=== PATIENT | male | born 1970 | race Caucasian/White ===

== ENCOUNTER 2021-02-15 20:06 | Inpatient (IN) | payer MEDICARE, BC ==
[~2021-02-15] VITALS: Ht 182.9 cm; Wt 116.2 kg
[2021-02-15] MEDS ORDERED: DexAMETHasone SOD PHOS 10MG/1ML VIAL INJ IV ONE (22:15)
[2021-02-15 22:35] LABS: Basophils # (auto) 0 10 ^3/uL (0-0.2); Basophils % (auto) 0.2 % (0.0-2.0); Eosinophils # (auto) 0 10 ^3/uL (0-0.8); Hemoglobin 12.7 g/dL (13.5-17.5); Lymphocytes % (auto) 47.3 % (10.0-50.0); Mean Corpuscular Hgb Conc. 34.5 g/dL (32.0-36.0); Monocytes # (auto) 0.2 10 ^3/uL (0-1.3); Monocytes % (auto) 3.6 % (0.0-12.0); Neutrophils # (auto) 2.1 10 ^3/uL (1.6-8.6); Neutrophils % (auto) 48.9 % (37.0-80.0); Nucleated Red Blood Cells % 0.3 %; Red Cell Distribution Width 13.4 % (11.8-14.3); White Blood Cell 4.2 10^3/uL (4.4-10.8)
[2021-02-15 22:49] LABS: Chloride 99 mmol/L (98-107); Potassium 4.5 mmol/L (3.5-5.1); Sodium 132 mmol/L (136-145)
[2021-02-15 22:53] LABS: INR 1.03 (0.9-1.15)
[2021-02-15 22:58] LABS: Alanine Aminotransferase 30 U/L (16-61); Alkaline Phosphatase 54 U/L (45-117); Anion Gap 6 (5-15); Aspartate Aminotransferase 31 U/L (15-37); BUN/Creatinine Ratio 22.9; Bilirubin, Total 0.4 mg/dL (0.2-1.0); Blood Urea Nitrogen 22 mg/dL (7-18); Calcium 7.8 mg/dL (8.5-10.1); Carbon Dioxide 27 mmol/L (21-32); GFR African American 107 mL/min; GFR Non-African American 88 mL/min; Glucose 297 mg/dL (74-106); Magnesium 2.2 mg/dL (1.6-2.6)
[2021-02-15] MEDS ORDERED: NITROGLYCERIN 0.4 MG SL TAB SL PRN (23:00)
[2021-02-15] MEDS ORDERED: AZITHROMYCIN 500MG/ 250ML 250 ML IV ONE (23:00)
[2021-02-15] MEDS ORDERED: REMDESIVIR PER PHARMACY 0 ML IV SCH (23:00)
[2021-02-15] MEDS ORDERED: MORPHINE SULFATE INJECTION 2 MG/ML SYRG IV PRN (23:00)
[2021-02-15] MEDS ORDERED: cefTRIAXone 1GM/50ML D5W 50 ML IV ONE (23:00)
[2021-02-16] VITALS (7 sets, daily range): BP systolic 109–144; BP diastolic 67–77
[2021-02-16] MEDS: ONDANSETRON HCL 4 MG/2 ML VIAL IV PRN ×3 (02:09→21:57)
[2021-02-16] MEDS: TEMAZEPAM 15 MG CAP PO PRN ×2 (02:10→23:15)
[2021-02-16] MEDS ORDERED: DOCU-94 PO (03:15)
[2021-02-16] MEDS ORDERED: SERT50TA19 PO (03:15)
[2021-02-16] MEDS ORDERED: FENO160T8 PO (03:15)
[2021-02-16] MEDS ORDERED: GABA300C10 PO (03:15)
[2021-02-16] MEDS ORDERED: QUET300T24 PO (03:15)
[2021-02-16] MEDS ORDERED: DULO60CA PO (03:15)
[2021-02-16] MEDS ORDERED: ATOR40TA52 PO (03:15)
[2021-02-16] MEDS ORDERED: HYDR-4798 PO (03:15)
[2021-02-16] MEDS ORDERED: SACC1CAP3 PO (03:15)
[2021-02-16] MEDS ORDERED: OMEP20TA PO (03:15)
[2021-02-16] MEDS ORDERED: LISI20TA28 PO (03:15)
[2021-02-16] MEDS ORDERED: ASCO500C49 PO (03:15)
[2021-02-16] MEDS ORDERED: OXCA600T3 PO (03:15)
[2021-02-16] MEDS ORDERED: INSUINJ18 SC (03:15)
[2021-02-16] MEDS: ACETAMINOPHEN 500 MG TAB PO PRN (04:12)
[2021-02-16] MEDS: IPRATROPIUM BROMIDE HFA AER IN SCH ×4 (06:00→22:20)
[2021-02-16] MEDS ORDERED: LEVOTHYROXINE SODIUM 100 MCG TAB PO SCH (07:00)
[2021-02-16 07:41] LABS: Basophils # (auto) 0 10 ^3/uL (0-0.2); Basophils % (auto) 0.2 % (0.0-2.0); Eosinophils # (auto) 0 10 ^3/uL (0-0.8); Hematocrit 38.2 % (41.0-53.0); Hemoglobin 12.9 g/dL (13.5-17.5); Lymphocytes # (auto) 2.1 10 ^3/uL (0.4-5.4); Lymphocytes % (auto) 46.2 % (10.0-50.0); Mean Corpuscular Hemoglobin 28.6 pg (28.0-32.0); Mean Corpuscular Hgb Conc. 33.7 g/dL (32.0-36.0); Mean Corpuscular Volume 84.8 fL (80.0-100.0); Monocytes # (auto) 0.1 10 ^3/uL (0-1.3); Monocytes % (auto) 3.3 % (0.0-12.0); Neutrophils # (auto) 2.3 10 ^3/uL (1.6-8.6); Neutrophils % (auto) 50.3 % (37.0-80.0); Nucleated Red Blood Cells % 0.3 %; Red Cell Distribution Width 13.1 % (11.8-14.3); White Blood Cell 4.5 10^3/uL (4.4-10.8)
[2021-02-16 07:52] LABS: Albumin 2.8 g/dL (3.4-5.0); Calcium 7.9 mg/dL (8.5-10.1); Potassium 4.7 mmol/L (3.5-5.1)
[2021-02-16 07:55] LABS: BUN/Creatinine Ratio 23.8; Bilirubin, Total 0.4 mg/dL (0.2-1.0); Total Protein 7.1 g/dL (6.4-8.2)
[2021-02-16] MEDS ORDERED: REMDESIVIR 200 MG in NS 210ml LOADING DOSE ADULT IV ONE (10:00)
[2021-02-16] MEDS: DexAMETHasone SOD PHOS 10MG/1ML VIAL INJ IV SCH (10:26)
[2021-02-16] MEDS: FAMOTIDINE 20 MG TAB PO SCH ×2 (10:27→21:55)
[2021-02-16] MEDS: ASCORBIC ACID 1,000 MG TAB PO SCH (10:27)
[2021-02-16] MEDS: CHOLECALCIFEROL (VITD3) 2,000 UNIT CAP/TAB PO SCH (10:27)
[2021-02-16] MEDS: LISINOPRIL 20 MG TAB PO SCH (10:27)
[2021-02-16] MEDS: ZINC SULFATE 220mg CAP or TAB PO SCH (10:27)
[2021-02-16] MEDS: ENOXAPARIN SOD 40 MG/0.4 ML SYRINGE SC SCH ×2 (10:28→21:55)
[2021-02-16] MEDS: ALBUTEROL SULF HFA 90MCG INH 200DOSE IN PRN ×2 (12:23→19:03)
[2021-02-16] MEDS ORDERED: FUROSEMIDE 20 MG/2 ML VIAL IV ONE (12:45)
[2021-02-16] MEDS: IVERMECTIN 3 MG TAB PO SCH (13:36)
[2021-02-16] MEDS: MORPHINE SULFATE INJECTION 2 MG/ML SYRG IV PRN ×2 (13:37→21:57)
[2021-02-16] MEDS: BUDESONIDE (INHALATION) 180 MCG IH IN SCH ×2 (15:00→19:03)
[2021-02-16] MEDS: ERGOCALCIFEROL 50,000 UNIT(1.25MG) CAP PO SCH (15:22)
[2021-02-16] MEDS ORDERED: DEXTROSE (50%) 50ML SYRG IV PRN (15:30)
[2021-02-16] MEDS ORDERED: ACETAMINOPHEN 650 mg PER 20.3 mL UD PO ONE (15:30)
[2021-02-16] MEDS ORDERED: diphenhdrAMINE HCL 50 MG/1 ML VL IV ONE (15:30)
[2021-02-16] MEDS ORDERED: methylPREDNISolone SOD SUCC 40 MG/ML VL IV ONE (15:30)
[2021-02-16] MEDS ORDERED: TOCILIZUMAB 400 MG in SODIUM CHL 0.9% 80 ML IV ONE (16:00)
[2021-02-16] MEDS: InsuLIN REG 1unit/0.01ml Soln (100units/ml) SC SCH ×2 (17:48→21:56)
[2021-02-16] MEDS: ACCU-CHEK COMFORT CURVE STRIP VI SCH ×2 (17:48→21:55)
[2021-02-16] MEDS: cefTRIAXone 1GM/50ML D5W 50 ML IV SCH (21:15)
[2021-02-16] MEDS: ATORVASTATIN 20 MG TAB PO SCH (21:54)
[2021-02-16] MEDS: INSULIN LANTUS (GLARGINE) 1 /0.01ml (100units/ml) SC SCH (21:56)
[2021-02-16] MEDS ORDERED: PATIENTS OWN MEDICATION (PULMICORT 360 MCG) IN SCH (22:00)
[2021-02-16] MEDS ORDERED: BUDESONIDE (INHALATION) 0.5 MG/2 ML NEB NEB SCH (22:00)
[2021-02-16] MEDS: AZITHROMYCIN 500MG/ 250ML 250 ML IV SCH (23:14)
[2021-02-17] VITALS (8 sets, daily range): BP systolic 106–136; BP diastolic 43–76
[2021-02-17] MEDS: ACETAMINOPHEN 500 MG TAB PO PRN (04:35)
[2021-02-17] MEDS: LEVOTHYROXINE SODIUM 100 MCG TAB PO SCH (06:19)
[2021-02-17] MEDS: InsuLIN REG 1unit/0.01ml Soln (100units/ml) SC SCH ×4 (06:20→22:25)
[2021-02-17] MEDS: LEVOTHYROXINE SODIUM 25 MCG TAB PO SCH (06:20)
[2021-02-17] MEDS: ACCU-CHEK COMFORT CURVE STRIP VI SCH ×4 (06:20→21:17)
[2021-02-17] MEDS: BUDESONIDE (INHALATION) 180 MCG IH IN SCH ×2 (07:29→18:53)
[2021-02-17] MEDS: IPRATROPIUM BROMIDE HFA AER IN SCH ×4 (07:29→22:27)
[2021-02-17] MEDS ORDERED: diphenhdrAMINE HCL 50 MG/1 ML VL IV ONE (10:00)
[2021-02-17] MEDS ORDERED: ACETAMINOPHEN 650 mg PER 20.3 mL UD PO ONE (10:00)
[2021-02-17] MEDS: DexAMETHasone SOD PHOS 10MG/1ML VIAL INJ IV SCH (10:22)
[2021-02-17] MEDS: FUROSEMIDE 20 MG/2 ML VIAL IV SCH (10:23)
[2021-02-17] MEDS: ZINC SULFATE 220mg CAP or TAB PO SCH (10:23)
[2021-02-17] MEDS: FAMOTIDINE 20 MG TAB PO SCH ×2 (10:23→21:17)
[2021-02-17] MEDS: LISINOPRIL 20 MG TAB PO SCH (10:24)
[2021-02-17] MEDS: ENOXAPARIN SOD 40 MG/0.4 ML SYRINGE SC SCH ×2 (10:24→21:17)
[2021-02-17] MEDS: ASCORBIC ACID 1,000 MG TAB PO SCH (10:24)
[2021-02-17] MEDS: CHOLECALCIFEROL (VITD3) 2,000 UNIT CAP/TAB PO SCH (10:24)
[2021-02-17] MEDS ORDERED: TOCILIZUMAB 400 MG in SODIUM CHL 0.9% 80 ML IV ONE (10:30)
[2021-02-17] MEDS: INSULIN LANTUS (GLARGINE) 1 /0.01ml (100units/ml) SC SCH ×2 (10:48→22:24)
[2021-02-17] MEDS: IVERMECTIN 3 MG TAB PO SCH (10:48)
[2021-02-17] MEDS: ONDANSETRON HCL 4 MG/2 ML VIAL IV PRN ×2 (10:50→20:05)
[2021-02-17] MEDS: MORPHINE SULFATE INJECTION 2 MG/ML SYRG IV PRN ×2 (10:50→20:05)
[2021-02-17] MEDS: REMDESIVIR 100mg 100 MG in SODIUM CHL 0.9% 230 ML IV SCH (15:10)
[2021-02-17] MEDS: cefTRIAXone 1GM/50ML D5W 50 ML IV SCH (21:17)
[2021-02-17] MEDS: ATORVASTATIN 20 MG TAB PO SCH (21:17)
[2021-02-17] MEDS: AZITHROMYCIN 500MG/ 250ML 250 ML IV SCH (22:25)
[2021-02-18] MEDS: TEMAZEPAM 15 MG CAP PO PRN (00:36)
[2021-02-18] MEDS: MORPHINE SULFATE INJECTION 2 MG/ML SYRG IV PRN ×2 (03:56→10:02)
[2021-02-18] MEDS: ONDANSETRON HCL 4 MG/2 ML VIAL IV PRN ×2 (03:56→10:02)
[2021-02-18 05:19] VITALS: BP 105/52
[2021-02-18] MEDS: InsuLIN REG 1unit/0.01ml Soln (100units/ml) SC SCH ×4 (06:19→22:52)
[2021-02-18] MEDS: ACCU-CHEK COMFORT CURVE STRIP VI SCH ×4 (06:20→21:29)
[2021-02-18] MEDS: LEVOTHYROXINE SODIUM 25 MCG TAB PO SCH (06:20)
[2021-02-18] MEDS: LEVOTHYROXINE SODIUM 100 MCG TAB PO SCH (06:20)
[2021-02-18] MEDS: HYDROcodone-ACET 10/325MG TAB PO PRN (06:21)
[2021-02-18 07:19] LABS: Potassium 4.8 mmol/L (3.5-5.1)
[2021-02-18 07:38] LABS: Albumin 2.7 g/dL (3.4-5.0); BUN/Creatinine Ratio 24.3; Calcium 8.2 mg/dL (8.5-10.1)
[2021-02-18 07:40] LABS: Bilirubin, Total 0.3 mg/dL (0.2-1.0); Total Protein 6.6 g/dL (6.4-8.2)
[2021-02-18 09:00] VITALS: BP 120/75
[2021-02-18] MEDS: ZINC SULFATE 220mg CAP or TAB PO SCH (09:44)
[2021-02-18] MEDS: FUROSEMIDE 20 MG/2 ML VIAL IV SCH (09:44)
[2021-02-18] MEDS: ASCORBIC ACID 1,000 MG TAB PO SCH (09:44)
[2021-02-18] MEDS: ENOXAPARIN SOD 40 MG/0.4 ML SYRINGE SC SCH ×2 (09:44→21:27)
[2021-02-18] MEDS: IVERMECTIN 3 MG TAB PO SCH (09:45)
[2021-02-18] MEDS: LISINOPRIL 20 MG TAB PO SCH (09:45)
[2021-02-18] MEDS: CHOLECALCIFEROL (VITD3) 2,000 UNIT CAP/TAB PO SCH (09:45)
[2021-02-18] MEDS: DexAMETHasone SOD PHOS 10MG/1ML VIAL INJ IV SCH (09:46)
[2021-02-18] MEDS: INSULIN LANTUS (GLARGINE) 1 /0.01ml (100units/ml) SC SCH ×2 (10:02→22:53)
[2021-02-18] MEDS: IPRATROPIUM BROMIDE HFA AER IN SCH ×3 (11:27→21:38)
[2021-02-18] MEDS: ALBUTEROL SULF HFA 90MCG INH 200DOSE IN PRN ×2 (11:27→21:37)
[2021-02-18] MEDS: BUDESONIDE (INHALATION) 180 MCG IH IN SCH ×2 (11:27→21:38)
[2021-02-18 13:00] VITALS: BP 104/68
[2021-02-18] MEDS: REMDESIVIR 100mg 100 MG in SODIUM CHL 0.9% 230 ML IV SCH (14:54)
[2021-02-18 17:00] VITALS: BP 106/64
[2021-02-18] MEDS ORDERED: LORazepam 2MG/ML-1ML VIAL IV ONE (17:45)
[2021-02-18 19:40] VITALS: BP 106/64
[2021-02-18] MEDS: GABAPENTIN 300 MG CAP PO SCH (21:27)
[2021-02-18] MEDS: cefTRIAXone 1GM/50ML D5W 50 ML IV SCH (21:27)
[2021-02-18] MEDS: ATORVASTATIN 20 MG TAB PO SCH (21:28)
[2021-02-18] MEDS: QUEtiapine FUMARATE 100 MG TAB PO SCH (21:28)
[2021-02-18 22:00] VITALS: BP 111/75
[2021-02-18] MEDS: AZITHROMYCIN 500MG/ 250ML 250 ML IV SCH (22:51)
[2021-02-18] MEDS: LORazepam 0.5 MG TAB PO PRN (23:45)
[2021-02-19] MEDS: IPRATROPIUM BROMIDE HFA AER IN SCH ×5 (00:25→22:45)
[2021-02-19] MEDS: TEMAZEPAM 15 MG CAP PO PRN (01:01)
[2021-02-19 05:00] VITALS: BP 105/59
[2021-02-19] MEDS: LEVOTHYROXINE SODIUM 100 MCG TAB PO SCH (06:05)
[2021-02-19] MEDS: GABAPENTIN 300 MG CAP PO SCH ×3 (06:05→22:37)
[2021-02-19] MEDS: LEVOTHYROXINE SODIUM 25 MCG TAB PO SCH (06:05)
[2021-02-19] MEDS: ACCU-CHEK COMFORT CURVE STRIP VI SCH ×4 (06:06→22:00)
[2021-02-19] MEDS: InsuLIN REG 1unit/0.01ml Soln (100units/ml) SC SCH ×4 (06:09→22:39)
[2021-02-19] MEDS: BUDESONIDE (INHALATION) 180 MCG IH IN SCH ×2 (06:17→22:45)
[2021-02-19] MEDS: ALBUTEROL SULF HFA 90MCG INH 200DOSE IN PRN ×2 (06:17→22:45)
[2021-02-19 07:55] VITALS: BP 117/65
[2021-02-19 07:55] LABS: Hematocrit 38.2 % (41.0-53.0); Hemoglobin 13.3 g/dL (13.5-17.5); Mean Corpuscular Hemoglobin 29.3 pg (28.0-32.0); Mean Corpuscular Hgb Conc. 34.9 g/dL (32.0-36.0); Mean Corpuscular Volume 83.9 fL (80.0-100.0); Red Blood Cells 4.55 10^6/uL (4.5-5.90); Red Cell Distribution Width 13.1 % (11.8-14.3); White Blood Cell 4.5 10^3/uL (4.4-10.8)
[2021-02-19 08:12] LABS: Band Neutrophils % (manual) 0; Basophils % (manual) 0 (0.0-2.0); Blast Cells 0; Eosinophils % (manual) 0 (0-7); Metamyelocytes % 0; Myelocytes % 0; Promyelocytes % 0; Reactive Lymphocytes 0
[2021-02-19 09:00] VITALS: BP 121/68
[2021-02-19 09:10] LABS: Lymphocytes % (manual) 53 (10.0-50.0); Monocytes % (manual) 6 (0-12)
[2021-02-19] MEDS: LISINOPRIL 20 MG TAB PO SCH (10:00)
[2021-02-19 10:13] LABS: Sodium 134 mmol/L (136-145)
[2021-02-19 10:14] LABS: Alanine Aminotransferase 39 U/L (16-61); Albumin 2.6 g/dL (3.4-5.0); Alkaline Phosphatase 59 U/L (45-117); Anion Gap 9 (5-15); Aspartate Aminotransferase 43 U/L (15-37); BUN/Creatinine Ratio 25.7; Bilirubin, Total 0.3 mg/dL (0.2-1.0); Blood Urea Nitrogen 19 mg/dL (7-18); Calcium 8.3 mg/dL (8.5-10.1); Carbon Dioxide 21 mmol/L (21-32); Chloride 104 mmol/L (98-107); GFR African American 145 mL/min; GFR Non-African American 119 mL/min; Glucose 218 mg/dL (74-106); Total Protein 6.6 g/dL (6.4-8.2)
[2021-02-19] MEDS: ZINC SULFATE 220mg CAP or TAB PO SCH (11:19)
[2021-02-19] MEDS: DULoxetine HCL 30 MG CAP PO SCH (11:19)
[2021-02-19] MEDS: CHOLECALCIFEROL (VITD3) 2,000 UNIT CAP/TAB PO SCH (11:19)
[2021-02-19] MEDS: IVERMECTIN 3 MG TAB PO SCH (11:20)
[2021-02-19] MEDS: ASCORBIC ACID 1,000 MG TAB PO SCH (11:20)
[2021-02-19] MEDS: SERTRALINE HCL 50 MG TAB PO SCH (11:20)
[2021-02-19] MEDS: ENOXAPARIN SOD 40 MG/0.4 ML SYRINGE SC SCH ×2 (11:21→22:37)
[2021-02-19] MEDS: DexAMETHasone SOD PHOS 10MG/1ML VIAL INJ IV SCH (11:22)
[2021-02-19] MEDS: FUROSEMIDE 20 MG/2 ML VIAL IV SCH (11:37)
[2021-02-19] MEDS: INSULIN LANTUS (GLARGINE) 1 /0.01ml (100units/ml) SC SCH ×2 (11:38→22:40)
[2021-02-19 13:00] VITALS: BP 117/65
[2021-02-19] MEDS: REMDESIVIR 100mg 100 MG in SODIUM CHL 0.9% 230 ML IV SCH (15:20)
[2021-02-19 17:00] VITALS: BP 106/62
[2021-02-19] MEDS: cefTRIAXone 1GM/50ML D5W 50 ML IV SCH (20:54)
[2021-02-19 22:00] VITALS: BP 135/66
[2021-02-19] MEDS: AZITHROMYCIN 500MG/ 250ML 250 ML IV SCH (22:36)
[2021-02-19] MEDS: ATORVASTATIN 20 MG TAB PO SCH (22:37)
[2021-02-19] MEDS: QUEtiapine FUMARATE 100 MG TAB PO SCH (22:37)
[2021-02-19] MEDS: LORazepam 0.5 MG TAB PO PRN (23:38)
[2021-02-19] MEDS: HYDROcodone-ACET 10/325MG TAB PO PRN (23:39)
[2021-02-20 05:00] VITALS: BP 121/71
[2021-02-20] MEDS: GABAPENTIN 300 MG CAP PO SCH ×3 (06:31→22:41)
[2021-02-20] MEDS: LEVOTHYROXINE SODIUM 100 MCG TAB PO SCH (06:31)
[2021-02-20] MEDS: LEVOTHYROXINE SODIUM 25 MCG TAB PO SCH (06:31)
[2021-02-20] MEDS: InsuLIN REG 1unit/0.01ml Soln (100units/ml) SC SCH ×4 (06:32→23:21)
[2021-02-20 06:57] LABS: Albumin 2.8 g/dL (3.4-5.0); Calcium 7.9 mg/dL (8.5-10.1); Potassium 3.3 mmol/L (3.5-5.1)
[2021-02-20 07:02] LABS: BUN/Creatinine Ratio 24.1; Bilirubin, Total 0.3 mg/dL (0.2-1.0); Total Protein 6.2 g/dL (6.4-8.2)
[2021-02-20] MEDS: BUDESONIDE (INHALATION) 180 MCG IH IN SCH (07:08)
[2021-02-20] MEDS: IPRATROPIUM BROMIDE HFA AER IN SCH ×3 (07:08→22:40)
[2021-02-20] MEDS: ALBUTEROL SULF HFA 90MCG INH 200DOSE IN PRN (07:08)
[2021-02-20] MEDS: ACCU-CHEK COMFORT CURVE STRIP VI SCH ×4 (07:24→22:00)
[2021-02-20] MEDS: DexAMETHasone SOD PHOS 10MG/1ML VIAL INJ IV SCH (09:24)
[2021-02-20] MEDS: IVERMECTIN 3 MG TAB PO SCH (09:25)
[2021-02-20] MEDS: ZINC SULFATE 220mg CAP or TAB PO SCH (09:25)
[2021-02-20] MEDS: DULoxetine HCL 30 MG CAP PO SCH (09:25)
[2021-02-20] MEDS: FUROSEMIDE 20 MG/2 ML VIAL IV SCH (09:25)
[2021-02-20] MEDS: CHOLECALCIFEROL (VITD3) 2,000 UNIT CAP/TAB PO SCH (09:26)
[2021-02-20] MEDS: LISINOPRIL 20 MG TAB PO SCH (09:26)
[2021-02-20] MEDS: ASCORBIC ACID 1,000 MG TAB PO SCH (09:26)
[2021-02-20] MEDS: SERTRALINE HCL 50 MG TAB PO SCH (09:26)
[2021-02-20] MEDS: ENOXAPARIN SOD 40 MG/0.4 ML SYRINGE SC SCH ×2 (09:27→22:56)
[2021-02-20 09:30] VITALS: BP 116/66
[2021-02-20] MEDS: INSULIN LANTUS (GLARGINE) 1 /0.01ml (100units/ml) SC SCH ×2 (09:57→23:21)
[2021-02-20] MEDS ORDERED: POTASSIUM CHL 20 Meq TABLET PO ONE (11:15)
[2021-02-20] MEDS: HYDROcodone-ACET 10/325MG TAB PO PRN ×2 (12:22→22:42)
[2021-02-20 13:00] VITALS: BP 112/67
[2021-02-20] MEDS: REMDESIVIR 100mg 100 MG in SODIUM CHL 0.9% 230 ML IV SCH (15:50)
[2021-02-20 16:53] VITALS: BP 105/51
[2021-02-20] MEDS: cefTRIAXone 1GM/50ML D5W 50 ML IV SCH (20:34)
[2021-02-20 22:00] VITALS: BP 125/73
[2021-02-20] MEDS: ATORVASTATIN 20 MG TAB PO SCH (22:40)
[2021-02-20] MEDS: AZITHROMYCIN 500MG/ 250ML 250 ML IV SCH (22:40)
[2021-02-20] MEDS: LORazepam 0.5 MG TAB PO PRN (22:41)
[2021-02-20] MEDS: QUEtiapine FUMARATE 100 MG TAB PO SCH (23:32)
[2021-02-21 05:00] VITALS: BP 111/73
[2021-02-21] MEDS: GABAPENTIN 300 MG CAP PO SCH ×3 (06:12→22:36)
[2021-02-21] MEDS: ACCU-CHEK COMFORT CURVE STRIP VI SCH ×4 (06:13→22:00)
[2021-02-21] MEDS: InsuLIN REG 1unit/0.01ml Soln (100units/ml) SC SCH ×4 (06:15→22:38)
[2021-02-21] MEDS: LEVOTHYROXINE SODIUM 100 MCG TAB PO SCH (06:24)
[2021-02-21] MEDS: LEVOTHYROXINE SODIUM 25 MCG TAB PO SCH (06:24)
[2021-02-21] MEDS: BUDESONIDE (INHALATION) 180 MCG IH IN SCH ×3 (07:06→18:46)
[2021-02-21 09:00] VITALS: BP 111/74
[2021-02-21] MEDS: FUROSEMIDE 20 MG/2 ML VIAL IV SCH (10:50)
[2021-02-21] MEDS: ZINC SULFATE 220mg CAP or TAB PO SCH (10:51)
[2021-02-21] MEDS: DexAMETHasone SOD PHOS 10MG/1ML VIAL INJ IV SCH (10:51)
[2021-02-21] MEDS: ENOXAPARIN SOD 40 MG/0.4 ML SYRINGE SC SCH ×2 (10:51→22:37)
[2021-02-21] MEDS: ASCORBIC ACID 1,000 MG TAB PO SCH (10:51)
[2021-02-21] MEDS: SERTRALINE HCL 50 MG TAB PO SCH (10:52)
[2021-02-21] MEDS: POTASSIUM CHL 20 Meq TABLET PO SCH (10:52)
[2021-02-21] MEDS: CHOLECALCIFEROL (VITD3) 2,000 UNIT CAP/TAB PO SCH (10:52)
[2021-02-21] MEDS: DULoxetine HCL 30 MG CAP PO SCH (10:52)
[2021-02-21] MEDS: LISINOPRIL 20 MG TAB PO SCH (10:53)
[2021-02-21] MEDS: INSULIN LANTUS (GLARGINE) 1 /0.01ml (100units/ml) SC SCH ×2 (11:04→22:38)
[2021-02-21 13:12] VITALS: BP 123/55
[2021-02-21 17:00] VITALS: BP 119/76
[2021-02-21 18:09] VITALS: BP 119/76
[2021-02-21] MEDS: ALBUTEROL SULF HFA 90MCG INH 200DOSE IN PRN (18:46)
[2021-02-21] MEDS: IPRATROPIUM BROMIDE HFA AER IN SCH ×2 (18:46→22:38)
[2021-02-21] MEDS: cefTRIAXone 1GM/50ML D5W 50 ML IV SCH (20:57)
[2021-02-21] MEDS: LORazepam 0.5 MG TAB PO PRN (20:58)
[2021-02-21] MEDS: HYDROcodone-ACET 10/325MG TAB PO PRN (21:20)
[2021-02-21 22:00] VITALS: BP 131/83
[2021-02-21] MEDS: AZITHROMYCIN 500MG/ 250ML 250 ML IV SCH (22:36)
[2021-02-21] MEDS: ATORVASTATIN 20 MG TAB PO SCH (22:36)
[2021-02-21] MEDS: QUEtiapine FUMARATE 100 MG TAB PO SCH (22:37)
[2021-02-22] MEDS: AZITHROMYCIN 500MG/ 250ML 250 ML IV SCH (02:36)
[2021-02-22 05:00] VITALS: BP 107/64
[2021-02-22] MEDS: GABAPENTIN 300 MG CAP PO SCH ×3 (05:53→22:40)
[2021-02-22] MEDS: InsuLIN REG 1unit/0.01ml Soln (100units/ml) SC SCH ×3 (06:25→17:02)
[2021-02-22] MEDS: LEVOTHYROXINE SODIUM 25 MCG TAB PO SCH (06:29)
[2021-02-22] MEDS: LEVOTHYROXINE SODIUM 100 MCG TAB PO SCH (06:29)
[2021-02-22] MEDS: IPRATROPIUM BROMIDE HFA AER IN SCH ×4 (07:06→22:09)
[2021-02-22] MEDS: BUDESONIDE (INHALATION) 180 MCG IH IN SCH ×2 (07:06→22:09)
[2021-02-22] MEDS: ALBUTEROL SULF HFA 90MCG INH 200DOSE IN PRN ×3 (07:06→22:09)
[2021-02-22] MEDS: ACCU-CHEK COMFORT CURVE STRIP VI SCH ×4 (07:25→22:40)
[2021-02-22 09:00] VITALS: BP 94/42
[2021-02-22] MEDS: FUROSEMIDE 20 MG/2 ML VIAL IV SCH (09:04)
[2021-02-22] MEDS: DULoxetine HCL 30 MG CAP PO SCH (09:34)
[2021-02-22] MEDS: DexAMETHasone SOD PHOS 10MG/1ML VIAL INJ IV SCH (09:34)
[2021-02-22] MEDS: POTASSIUM CHL 20 Meq TABLET PO SCH (09:34)
[2021-02-22] MEDS: ZINC SULFATE 220mg CAP or TAB PO SCH (09:34)
[2021-02-22] MEDS: CHOLECALCIFEROL (VITD3) 2,000 UNIT CAP/TAB PO SCH (09:35)
[2021-02-22] MEDS: LISINOPRIL 20 MG TAB PO SCH (09:35)
[2021-02-22] MEDS: SERTRALINE HCL 50 MG TAB PO SCH (09:35)
[2021-02-22] MEDS: ENOXAPARIN SOD 40 MG/0.4 ML SYRINGE SC SCH ×2 (09:35→22:39)
[2021-02-22] MEDS: ASCORBIC ACID 1,000 MG TAB PO SCH (09:35)
[2021-02-22] MEDS: INSULIN LANTUS (GLARGINE) 1 /0.01ml (100units/ml) SC SCH ×2 (09:36→23:58)
[2021-02-22 13:00] VITALS: BP_SYST 139; BP_SYST 94; BP_DIAS 42; BP_DIAS 63
[2021-02-22 17:00] VITALS: BP 112/68
[2021-02-22 22:00] VITALS: BP 103/59
[2021-02-22] MEDS: ATORVASTATIN 20 MG TAB PO SCH (22:39)
[2021-02-22] MEDS: QUEtiapine FUMARATE 100 MG TAB PO SCH (22:40)
[2021-02-22] MEDS: LORazepam 0.5 MG TAB PO PRN (23:55)
[2021-02-22] MEDS: HYDROcodone-ACET 10/325MG TAB PO PRN (23:58)
[2021-02-23] MEDS: cefTRIAXone 1GM/50ML D5W 50 ML IV SCH (01:11)
[2021-02-23 05:00] VITALS: BP 129/78
[2021-02-23 06:01] LABS: BUN/Creatinine Ratio 19.2; Calcium 8.3 mg/dL (8.5-10.1); Potassium 3.9 mmol/L (3.5-5.1)
[2021-02-23] MEDS: LEVOTHYROXINE SODIUM 100 MCG TAB PO SCH (06:10)
[2021-02-23] MEDS: LEVOTHYROXINE SODIUM 25 MCG TAB PO SCH (06:10)
[2021-02-23] MEDS: GABAPENTIN 300 MG CAP PO SCH ×3 (06:10→21:55)
[2021-02-23] MEDS: ACCU-CHEK COMFORT CURVE STRIP VI SCH ×4 (06:11→21:56)
[2021-02-23] MEDS: InsuLIN REG 1unit/0.01ml Soln (100units/ml) SC SCH ×5 (06:30→21:56)
[2021-02-23] MEDS: BUDESONIDE (INHALATION) 180 MCG IH IN SCH ×2 (07:45→18:24)
[2021-02-23] MEDS: ALBUTEROL SULF HFA 90MCG INH 200DOSE IN PRN (07:45)
[2021-02-23] MEDS: IPRATROPIUM BROMIDE HFA AER IN SCH ×4 (07:46→22:38)
[2021-02-23 09:00] VITALS: BP 107/69
[2021-02-23] MEDS: DexAMETHasone SOD PHOS 10MG/1ML VIAL INJ IV SCH (09:38)
[2021-02-23] MEDS: ZINC SULFATE 220mg CAP or TAB PO SCH (09:39)
[2021-02-23] MEDS: POTASSIUM CHL 20 Meq TABLET PO SCH (09:39)
[2021-02-23] MEDS: FUROSEMIDE 20 MG/2 ML VIAL IV SCH (09:39)
[2021-02-23] MEDS: DULoxetine HCL 30 MG CAP PO SCH (09:39)
[2021-02-23] MEDS: ASCORBIC ACID 1,000 MG TAB PO SCH (09:39)
[2021-02-23] MEDS: CHOLECALCIFEROL (VITD3) 2,000 UNIT CAP/TAB PO SCH (09:40)
[2021-02-23] MEDS: LISINOPRIL 20 MG TAB PO SCH (09:40)
[2021-02-23] MEDS: INSULIN LANTUS (GLARGINE) 1 /0.01ml (100units/ml) SC SCH ×2 (09:40→21:57)
[2021-02-23] MEDS: SERTRALINE HCL 50 MG TAB PO SCH (09:40)
[2021-02-23] MEDS: ENOXAPARIN SOD 40 MG/0.4 ML SYRINGE SC SCH ×2 (09:41→21:55)
[2021-02-23] MEDS: ERGOCALCIFEROL 50,000 UNIT(1.25MG) CAP PO SCH (11:29)
[2021-02-23 13:00] VITALS: BP 112/89
[2021-02-23 17:00] VITALS: BP 112/79
[2021-02-23] MEDS: QUEtiapine FUMARATE 100 MG TAB PO SCH (21:55)
[2021-02-23] MEDS: ATORVASTATIN 20 MG TAB PO SCH (21:55)
[2021-02-23] MEDS: HYDROcodone-ACET 10/325MG TAB PO PRN (21:59)
[2021-02-23 22:00] VITALS: BP 107/61
[2021-02-24 05:00] VITALS: BP 92/41
[2021-02-24] MEDS: LEVOTHYROXINE SODIUM 25 MCG TAB PO SCH (06:11)
[2021-02-24] MEDS: GABAPENTIN 300 MG CAP PO SCH ×3 (06:11→22:12)
[2021-02-24] MEDS: LEVOTHYROXINE SODIUM 100 MCG TAB PO SCH (06:11)
[2021-02-24] MEDS: ACCU-CHEK COMFORT CURVE STRIP VI SCH ×4 (06:12→22:13)
[2021-02-24] MEDS: InsuLIN REG 1unit/0.01ml Soln (100units/ml) SC SCH ×4 (06:15→22:14)
[2021-02-24] MEDS: IPRATROPIUM BROMIDE HFA AER IN SCH ×4 (07:46→22:00)
[2021-02-24] MEDS: BUDESONIDE (INHALATION) 180 MCG IH IN SCH ×2 (07:47→18:57)
[2021-02-24 09:40] VITALS: BP 110/66
[2021-02-24] MEDS: DULoxetine HCL 30 MG CAP PO SCH (10:03)
[2021-02-24] MEDS: FUROSEMIDE 20 MG/2 ML VIAL IV SCH (10:03)
[2021-02-24] MEDS: ZINC SULFATE 220mg CAP or TAB PO SCH (10:03)
[2021-02-24] MEDS: DexAMETHasone SOD PHOS 4 MG/1ML SDV INJ IV SCH (10:03)
[2021-02-24] MEDS: CHOLECALCIFEROL (VITD3) 2,000 UNIT CAP/TAB PO SCH (10:04)
[2021-02-24] MEDS: PANTOPRAZOLE 40 MG TAB PO SCH (10:04)
[2021-02-24] MEDS: POTASSIUM CHL 20 Meq TABLET PO SCH (10:04)
[2021-02-24] MEDS: LISINOPRIL 20 MG TAB PO SCH (10:04)
[2021-02-24] MEDS: ASCORBIC ACID 1,000 MG TAB PO SCH (10:04)
[2021-02-24] MEDS: SERTRALINE HCL 50 MG TAB PO SCH (10:05)
[2021-02-24] MEDS: ENOXAPARIN SOD 40 MG/0.4 ML SYRINGE SC SCH ×2 (10:05→22:13)
[2021-02-24] MEDS: INSULIN LANTUS (GLARGINE) 1 /0.01ml (100units/ml) SC SCH ×2 (11:32→22:14)
[2021-02-24 13:00] VITALS: BP 109/65
[2021-02-24 17:00] VITALS: BP 118/67
[2021-02-24 22:00] VITALS: BP 137/67
[2021-02-24] MEDS: LORazepam 0.5 MG TAB PO PRN (22:11)
[2021-02-24] MEDS: QUEtiapine FUMARATE 100 MG TAB PO SCH (22:12)
[2021-02-24] MEDS: HYDROcodone-ACET 10/325MG TAB PO PRN (22:12)
[2021-02-24] MEDS: ATORVASTATIN 20 MG TAB PO SCH (22:12)
[2021-02-25 05:00] VITALS: BP 99/43
[2021-02-25 05:55] LABS: Red Blood Cells 4.28 10^6/uL (4.5-5.90)
[2021-02-25 05:57] LABS: Hematocrit 35.8 % (41.0-53.0); Hemoglobin 12.5 g/dL (13.5-17.5); Mean Corpuscular Hemoglobin 29.3 pg (28.0-32.0); Mean Corpuscular Volume 83.6 fL (80.0-100.0); Red Cell Distribution Width 13.2 % (11.8-14.3); White Blood Cell 8.5 10^3/uL (4.4-10.8)
[2021-02-25 06:03] LABS: Basophils % (manual) 0 (0.0-2.0); Blast Cells 0; Metamyelocytes % 0; Myelocytes % 0; Promyelocytes % 0
[2021-02-25] MEDS: LEVOTHYROXINE SODIUM 100 MCG TAB PO SCH (06:12)
[2021-02-25] MEDS: ACCU-CHEK COMFORT CURVE STRIP VI SCH ×4 (06:12→21:23)
[2021-02-25] MEDS: LEVOTHYROXINE SODIUM 25 MCG TAB PO SCH (06:12)
[2021-02-25] MEDS: GABAPENTIN 300 MG CAP PO SCH ×3 (06:12→21:23)
[2021-02-25 06:13] LABS: Potassium 3.9 mmol/L (3.5-5.1)
[2021-02-25] MEDS: InsuLIN REG 1unit/0.01ml Soln (100units/ml) SC SCH ×4 (06:13→21:22)
[2021-02-25 06:23] LABS: Albumin 2.7 g/dL (3.4-5.0); BUN/Creatinine Ratio 18.5; Bilirubin, Total 0.4 mg/dL (0.2-1.0); Calcium 8.2 mg/dL (8.5-10.1); Magnesium 2.2 mg/dL (1.6-2.6); Total Protein 5.7 g/dL (6.4-8.2)
[2021-02-25 06:54] LABS: Band Neutrophils % (manual) 6; Eosinophils % (manual) 2 (0-7); Lymphocytes % (manual) 48 (10.0-50.0); Monocytes % (manual) 4 (0-12); Reactive Lymphocytes 3
[2021-02-25] MEDS: BUDESONIDE (INHALATION) 180 MCG IH IN SCH ×2 (08:55→19:02)
[2021-02-25] MEDS: IPRATROPIUM BROMIDE HFA AER IN SCH ×4 (08:55→21:21)
[2021-02-25] MEDS: ALBUTEROL SULF HFA 90MCG INH 200DOSE IN PRN (08:55)
[2021-02-25 09:00] VITALS: BP 97/54
[2021-02-25] MEDS: DexAMETHasone SOD PHOS 4 MG/1ML SDV INJ IV SCH (10:09)
[2021-02-25] MEDS: ZINC SULFATE 220mg CAP or TAB PO SCH (10:10)
[2021-02-25] MEDS: FUROSEMIDE 20 MG/2 ML VIAL IV SCH (10:10)
[2021-02-25] MEDS: LISINOPRIL 20 MG TAB PO SCH (10:11)
[2021-02-25] MEDS: ASCORBIC ACID 1,000 MG TAB PO SCH (10:11)
[2021-02-25] MEDS: POTASSIUM CHL 20 Meq TABLET PO SCH (10:11)
[2021-02-25] MEDS: PANTOPRAZOLE 40 MG TAB PO SCH (10:11)
[2021-02-25] MEDS: CHOLECALCIFEROL (VITD3) 2,000 UNIT CAP/TAB PO SCH (10:11)
[2021-02-25] MEDS: DULoxetine HCL 30 MG CAP PO SCH (10:11)
[2021-02-25 10:12] VITALS: BP 111/56
[2021-02-25] MEDS: SERTRALINE HCL 50 MG TAB PO SCH (10:12)
[2021-02-25] MEDS: ENOXAPARIN SOD 40 MG/0.4 ML SYRINGE SC SCH ×2 (10:12→21:23)
[2021-02-25] MEDS: INSULIN LANTUS (GLARGINE) 1 /0.01ml (100units/ml) SC SCH ×2 (11:48→21:22)
[2021-02-25 13:00] VITALS: BP 113/72
[2021-02-25 16:39] VITALS: BP 125/64
[2021-02-25] MEDS: QUEtiapine FUMARATE 100 MG TAB PO SCH (21:23)
[2021-02-25] MEDS: ATORVASTATIN 20 MG TAB PO SCH (21:23)
[2021-02-25] MEDS: HYDROcodone-ACET 10/325MG TAB PO PRN (21:24)
[2021-02-25] MEDS: LORazepam 0.5 MG TAB PO PRN (21:24)
[2021-02-25 22:00] VITALS: BP 114/67
[2021-02-26 05:00] VITALS: BP 113/61
[2021-02-26] MEDS: GABAPENTIN 300 MG CAP PO SCH ×2 (06:02→14:00)
[2021-02-26] MEDS: LEVOTHYROXINE SODIUM 25 MCG TAB PO SCH (06:15)
[2021-02-26] MEDS: LEVOTHYROXINE SODIUM 100 MCG TAB PO SCH (06:15)
[2021-02-26] MEDS: ACCU-CHEK COMFORT CURVE STRIP VI SCH ×3 (06:16→17:00)
[2021-02-26] MEDS: InsuLIN REG 1unit/0.01ml Soln (100units/ml) SC SCH ×3 (06:17→17:00)
[2021-02-26] MEDS: BUDESONIDE (INHALATION) 180 MCG IH IN SCH (06:57)
[2021-02-26] MEDS: IPRATROPIUM BROMIDE HFA AER IN SCH ×2 (06:57→12:55)
[2021-02-26] MEDS: ALBUTEROL SULF HFA 90MCG INH 200DOSE IN PRN (06:57)
[2021-02-26] MEDS ORDERED: ALBUAER3 IN (08:59)
[2021-02-26] MEDS ORDERED: ERGO1CAP23 PO (08:59)
[2021-02-26 09:00] VITALS: BP 106/52
[2021-02-26] MEDS: DexAMETHasone SOD PHOS 4 MG/1ML SDV INJ IV SCH (10:56)
[2021-02-26] MEDS: ZINC SULFATE 220mg CAP or TAB PO SCH (10:58)
[2021-02-26] MEDS: FUROSEMIDE 20 MG/2 ML VIAL IV SCH (10:58)
[2021-02-26] MEDS: DULoxetine HCL 30 MG CAP PO SCH (10:58)
[2021-02-26] MEDS: ASCORBIC ACID 1,000 MG TAB PO SCH (10:59)
[2021-02-26] MEDS: CHOLECALCIFEROL (VITD3) 2,000 UNIT CAP/TAB PO SCH (10:59)
[2021-02-26] MEDS: POTASSIUM CHL 20 Meq TABLET PO SCH (10:59)
[2021-02-26] MEDS: PANTOPRAZOLE 40 MG TAB PO SCH (10:59)
[2021-02-26] MEDS: LISINOPRIL 20 MG TAB PO SCH (11:00)
[2021-02-26] MEDS: SERTRALINE HCL 50 MG TAB PO SCH (11:00)
[2021-02-26] MEDS: ENOXAPARIN SOD 40 MG/0.4 ML SYRINGE SC SCH (11:01)
[2021-02-26] MEDS: INSULIN LANTUS (GLARGINE) 1 /0.01ml (100units/ml) SC SCH (11:08)
[2021-02-26 12:56] VITALS: BP 139/73
[2021-02-26 16:46] VITALS: BP 126/75
[2021-02-26 17:08] VITALS: BP 126/75
[2021-02-26 17:25] VITALS: BP 126/75
== END 2021-02-26 18:15 | disposition home or self-care (01) | DRG 177 ==
LOC: ER 20:07 → TELE 22:47 → TELE-EAST 23:49
PROVIDERS: ADMIT Nurse Practitioner; ATTEND Internal Medicine
PROC: XW033E5 Introduction of Remdesivir Anti-infective into Peripheral Vein, Percutaneous Approach, New Technology Group 5 (ICD-10-PCS; principal; 2021-02-16)
PROC: XW033H5 Introduction of Tocilizumab into Peripheral Vein, Percutaneous Approach, New Technology Group 5 (ICD-10-PCS; 2021-02-16)
PROC: XW13325 Transfusion of Convalescent Plasma (Nonautologous) into Peripheral Vein, Percutaneous Approach, New Technology Group 5 (ICD-10-PCS; 2021-02-16)
DX: U07.1 COVID-19 (principal); J12.82 Pneumonia due to coronavirus disease 2019; J96.01 Acute respiratory failure with hypoxia; D68.59 Other primary thrombophilia; E11.9 Type 2 diabetes mellitus without complications; E03.9 Hypothyroidism, unspecified; E55.9 Vitamin D deficiency, unspecified; E66.9 Obesity, unspecified; I10 Essential (primary) hypertension; E78.5 Hyperlipidemia, unspecified; D89.839 Cytokine release syndrome, grade unspecified; Z68.34 Body mass index [BMI] 34.0-34.9, adult
CPT/HCPCS: 36415; 36600; 71045; 80048; 80053; 82306; 82728; 82805; 82962; 83036; 83605; 83615; 83735; 83880; 84443; 84484; 85007; 85025; 85027; 85379; 85610; 86141; 86850; 86900; 86901; 87040; 87426; 93005; 94640; 96365; 96368; 96375; G0378; J0696; J1100; J1815; J2405